=== PATIENT | male | born 1950 | race Caucasian/White ===

== ENCOUNTER 2016-12-28 18:13 | Observation (INO) | payer OTHER ==
[~2016-12-28] VITALS: Ht 188 cm; Wt 119.3 kg
[~2016-12-28 18:13] MED LIST: ALLOPURINOL300 MG PO; CARDURA4 MG PO; CHLORTHALIDONE25 MG PO; COZAAR100 MG PO; DILTIAZEM 24HR240 M1 PO; LIPITOR20 MG PO; METOPROLOL SUC100 MG PO; POTASSIUM CHLO10 MEQ PO
[2016-12-28] MEDS ORDERED: DICLOFENAC SODI75 MG PO (18:48)
[2016-12-28] MEDS ORDERED: OSTERA TABLET1 EACH PO (18:49)
[2016-12-28] MEDS ORDERED: PAIN RELIEF500 M1 PO (18:50)
[2016-12-28] MEDS ORDERED: SENNA8.6 MG PO (18:51)
[2016-12-28] MEDS ORDERED: ASPIRIN EC325 MG PO (18:51)
[2016-12-28] MEDS ORDERED: DOK100 MG PO (18:52)
[2016-12-28] MEDS ORDERED: ULTRAM50 MG PO (18:53)
[2016-12-28] MEDS ORDERED: PERCOCET 5-3251 EACH PO (18:53)
[2016-12-28] MEDS ORDERED: MELOXICAM7.5 MG PO (18:54)
--- NOTE | 2016-12-28 22:55 | EKG ---
[facility] [address] [place] [address] Signed Sinus bradycardia Inferior infarct , age undetermined Abnormal ECG Confirmed by AMPARO ALFORD MD ([id number]) on 12/28/2016 10:55:32 PM Electronically Signed By: AMPARO ALFORD MD 12/28/16 2255 PATIENT NAME: LEONARDO DOMINGUEZ Electrocardiogram DATE OF : 54 PHYSICIAN: AMPARO ALFORD MD REPORT #: [id number] REPORT IS CONFIDENTIAL AND NOT TO BE RELEASED WITHOUT AUTHORIZATION
--- NOTE | 2016-12-29 02:21 | NUR ---
PATIENT RESTING COMFORTABLY IN BED, DENIES ANY COMPLAINTS OR NEEDS.
--- NOTE | 2016-12-29 06:20 | NUR ---
PATIENT RESTED WELL DURING THE NIGHT. TELEMETRY MONITORING SINUS NAI IN THE 50'S. STANDS AT BEDSIDE TO VOID USING URINAL. CALLS FOR NEEDS. NO DISTRESS OR COMPLAINTS DURING THE NIGHT.
--- NOTE | 2016-12-29 09:00 | NUR ---
PT AWAKE, ALERT AND ORIENTED. JUST GETTING BACK INTO BED AFTER GETTING ORTHOSTATIC VITAL SIGNS. PT POSITIVE FOR ORTHOSTATIC HYPOTENSION BUT DENIED DIZZINESS, LIGHT HEADEDNESS, JUST SLIGHT INCREASE IN HEADACHE. PT DENIES CHEST PAIN, SOB, COUGH, OR ANY DIFFICUTLY BREATHING. LUNGS CLEAR BUT SLIGHTLY DIMINISHED IN THE BASES, PT TAKES SHALLOW BREATHS. LEFT HIP INCISION SITE OPEN TO AIR WITH STERI STRIPS, CLEAN AND DRY, MILD BRUISING AND SWELLING NOTED. PT GIVEN ICE PACKS TO APPLY TO SITE. DENIES TENDERNESS OF BILATERAL LOWER EXTREMITIES, NO WARM SPOTS NOTED. IV INFUSING IN LEFT HAND WNL. CALL LIGHT WITHIN REACH.
--- NOTE | 2016-12-29 10:06 | NUR ---
PT AWAKE IN BED. FRESH WATER. EMPTY GARBAGE. AM CARE. SAID WANTED SHOWER ATER.
--- NOTE | 2016-12-29 11:43 | NUR ---
PT RESTING IN BED VISITING WITH FAMILY. DENIES NEEDS OR CONCERNS AT THIS TIME. CALL LIGHT WITHIN REACH.
--- NOTE | 2016-12-29 13:05 | NUR ---
DR. OJEDA ON PT. DISCHARGE PLAN DISCUSSED WITH PT AND FAMILY, ALL QUESTIONS ANSWERED. PT ATE ALL OF LUNCH. CALL LIGHT WITHIN REACH.
[2016-12-29] MEDS ORDERED: ELIQUIS5 MG PO (13:06)
--- NOTE | 2016-12-29 14:00 | NUR ---
PT ASSISTED PT TO GET DRESSED. IV DC'D BY CHARGE NURSE ELISE.
== END 2016-12-29 14:20 | disposition home or self-care (01) ==
LOC: ED 18:13 → MS 18:15 → ED 21:07 → MS 12-29 14:20
PROVIDERS: ADMIT Internal Medicine
DX: I26.99 Other pulmonary embolism without acute cor pulmonale (principal); R55 Syncope and collapse; M25.552 Pain in left hip; I10 Essential (primary) hypertension; E78.5 Hyperlipidemia, unspecified; Z86.718 Personal history of other venous thrombosis and embolism; Z79.1 Long term (current) use of non-steroidal anti-inflammatories (NSAID); Z79.82 Long term (current) use of aspirin; Z79.891 Long term (current) use of opiate analgesic; Z74.09 Other reduced mobility; Z96.642 Presence of left artificial hip joint; Z88.0 Allergy status to penicillin; Z79.899 Other long term (current) drug therapy
CPT/HCPCS: 71010; 71260; 73502; 80053; 84484; 85025; 93005; 93010; 96360; 96372; 99285; G0378; J1650; J7120; Q9967

== ENCOUNTER 2016-12-30 14:50 | Emergency (ER) | payer OTHER ==
[~2016-12-30] VITALS: Ht 188 cm; Wt 119.3 kg
[~2016-12-30 14:50] MED LIST changes: +ASPIRIN EC325 MG PO; +DICLOFENAC SODI75 MG PO; +DOK100 MG PO; +ELIQUIS5 MG PO; +MELOXICAM7.5 MG PO; +OSTERA TABLET1 EACH PO; +PAIN RELIEF500 M1 PO; +PERCOCET 5-3251 EACH PO; +SENNA8.6 MG PO; +ULTRAM50 MG PO
--- NOTE | 2016-12-31 22:28 | EKG ---
[facility] [address] [facility] [place] [address] Signed Normal sinus rhythm Low voltage QRS Borderline ECG When compared with ECG of 28-DEC-2016 18:47, Criteria for Inferior infarct are no longer present Confirmed by AMPARO ALFORD MD ([id number]) on 12/31/2016 10:28:03 PM Electronically Signed By: AMPARO ALFORD MD 12/31/16 2228 PATIENT NAME: DOMINGUEZLEONARDOJennifer CASTLE Electrocardiogram DATE OF : 54 PHYSICIAN: AMPARO ALFORD MD REPORT #: [id number] REPORT IS CONFIDENTIAL AND NOT TO BE RELEASED WITHOUT AUTHORIZATION
== END 2016-12-30 19:08 | disposition short-term general hospital (02) ==
LOC: ED 14:50
DX: M96.830 Postprocedural hemorrhage of a musculoskeletal structure following a musculoskeletal system procedure (principal); I26.99 Other pulmonary embolism without acute cor pulmonale; I10 Essential (primary) hypertension; E78.5 Hyperlipidemia, unspecified; Z86.718 Personal history of other venous thrombosis and embolism; Z88.0 Allergy status to penicillin; Z79.899 Other long term (current) drug therapy; Z96.642 Presence of left artificial hip joint
CPT/HCPCS: 80053; 85025; 86850; 86900; 86901; 93005; 93010; 93971; 96374; 96375; 99285; J1170; J2405

== ENCOUNTER 2017-02-17 07:28 | Emergency (ER) | payer OTHER ==
[~2017-02-17] VITALS: Ht 188 cm; Wt 113.4 kg
== END 2017-02-17 10:23 | disposition home or self-care (01) ==
LOC: ED 07:28
DX: M79.652 Pain in left thigh (principal); I10 Essential (primary) hypertension; E78.5 Hyperlipidemia, unspecified; Z86.718 Personal history of other venous thrombosis and embolism; Z79.899 Other long term (current) drug therapy; Z96.642 Presence of left artificial hip joint; Z88.0 Allergy status to penicillin
CPT/HCPCS: 73502; 93971; 99284

== ENCOUNTER 2022-07-28 09:31 | Emergency (ER) | payer OTHER, MEDICARE ==
[~2022-07-28] VITALS: Ht 185.4 cm; Wt 112.0 kg
[~2022-07-28 09:31] MED LIST changes: +ASPIR 8181 MG PO; +FLAX OIL1000 MG PO; +IBUPROFEN200 MG PO; +MAGNESIUM400 M1 PO
[2022-07-28] MEDS ORDERED: MONTELUKAST SOD10 MG PO (10:05)
[2022-07-28] MEDS ORDERED: SPIRONOLACTONE25 MG PO (10:05)
[2022-07-28] MEDS ORDERED: ELIQUIS5 MG PO (10:54)
[2022-07-28 11:05] VITALS: BP 102/58
== END 2022-07-28 11:05 | disposition home or self-care (01) ==
LOC: ED 09:31
DX: I82.431 Acute embolism and thrombosis of right popliteal vein (principal); I10 Essential (primary) hypertension; E78.5 Hyperlipidemia, unspecified; Z88.0 Allergy status to penicillin; Z91.048 Other nonmedicinal substance allergy status; Z79.899 Other long term (current) drug therapy; Z79.82 Long term (current) use of aspirin
CPT/HCPCS: 93971; 99283-25